=== PATIENT | female | born 1950 | race Caucasian/White ===

== ENCOUNTER 2020-08-11 20:17 | Emergency (ER) | payer BC, MEDICARE ==
[~2020-08-11 20:17] MED LIST: Doxycycline 100 MG Cap ONE
--- NOTE | 2020-08-11 22:24 | ER ---
REASON FOR EMERGENCY ROOM VISIT: Tick bite. HISTORY: This 70-year-old woman came to the emergency room accompanied by her after they found an engorged tick on her back this evening. Apparently, she had just gotten out of the shower and was wiping off with the towel when her noticed an engorged tick on her right scapular area of her back. They pulled it off and removed the tick completely intact with the head remaining attached to the tick. The tick was engorged, although it did appear to be a small tick as compared to typical wood tick. She does not know how long she has had it, but by the looks of it, it could easily have been there for 2 days or more because it was quite engorged, she denies any fever or pain or itching over the area. She has no headache or arthralgias. She has no GI complaints. PAST MEDICAL HISTORY: See EMR. MEDICATIONS: See EMR. REVIEW OF SYSTEMS: Pertinent positives and negatives as listed in the HPI. PHYSICAL EXAMINATION: VITAL SIGNS: She is afebrile. GENERAL: Alert and in no acute distress. HEENT: Unremarkable. No scleral icterus. NECK: No adenopathy. CHEST: Clear to auscultation with no wheezes, rhonchi, or rales. CARDIAC: Regular rate without murmur. SKIN: The site where the tick was imbedded, has a mild raised area where the head was attached. There is minimal surrounding erythema, approximately 1 cm in diameter. There is certainly no sign of erythema migrans at this time. IMPRESSION: Tick bite. FURTHER EMERGENCY ROOM COURSE: The tick is a very small tick and could well be a deer tick. Because it is engorged, I cannot determine this. It certainly seems sensible to assume it has been in place for 36 hours and assuming it is a deer tick and that it has been attached for this long, then at least prophylactic treatment is warranted. She asked me about definitive treatment just to be on the safe side, and I did not feel that was a terrible idea and she requested to be treated for 10 days with doxycycline 100 mg p.o. b.i.d., the alternative of prophylactic treatment with a single 200 mg dose of doxycycline was discussed with her and she simply felt that it would be sensible to play it safe and treat her with a full course of doxycycline. She was given 10-day supply of doxycycline 100 mg p.o. b.i.d. Potential side effects including GI upset and photosensitivity was discussed with her. She was also discussed regarding washing the area with bactericidal soap and if she wants to go ahead and apply antibacterial ointment, she can go ahead and do that. Should she notice increase in the size of the erythema or any fever or chills, she should get in touch with us, and if end of course, if she has any other questions, she should contact us. All questions were answered. She understands and agrees with this plan. AZEB /[id number]
== END 2020-08-11 21:15 | disposition home or self-care (01) ==
LOC: LB.ED 20:17
DX: S20.461A Insect bite (nonvenomous) of right back wall of thorax, initial encounter (principal); W57.XXXA Bitten or stung by nonvenomous insect and other nonvenomous arthropods, initial encounter
CPT/HCPCS: 99281; A9270-GY